=== PATIENT | male | born 1945 | race Caucasian/White ===

== ENCOUNTER 2018-09-26 07:51 | Day surgery (SDC) | payer OTHER ==
[2018-09-23 10:00] LABS: Absolute Lymphocytes (CBC) 2.2 K/uL (0.7-4.9); Absolute Monocytes 0.5 K/uL (0.1-1.3); Absolute Neutrophil 3.3 K/uL (1.8-8.0); Basophils % 1.1 % (0-1.3); Eosinophils % 6.6 % (0-4.4); Hematocrit 44.1 % (39.6-49.0); Lymphocytes % 34.5 % (15.3-44.8); MPV 7.9 fL (7.6-11.3); Monocytes % 7.5 % (3.3-12.3); RBC Red Blood Cell Count 4.62 M/uL (4.33-5.43)
[2018-09-23 10:45] LABS: Protime INR 1.04
--- NOTE | 2018-09-23 12:34 | RAD REPORT ---
EXAM DESCRIPTION: Anurag Purvis And Lat (2 Views)09/23/2018 12:25 pm CLINICAL HISTORY: Preop for coronary arterial catheterization COMPARISON: May 2017 FINDINGS: Small calcified granulomas present within the left lung base. A second 6 millimeter nodula r density lies inferior to this. Right lung appears clear. The heart is normal size IMPRESSION: 6 millimeter nodular overlying the left lung base may represent a pulmonary nodule or ni pple shadow. It is recommended that the patient have frontal and oblique views of the chest with a le ft nipple marker in 3 months for re-evaluation. Small left lung calcified granuloma
[2018-09-26] MEDS ORDERED: NA CHLORIDE 0.9% 500 ML ONE (08:08)
[2018-09-26] MEDS ORDERED: HEPARIN 5000 UNIT/ML 1 ML VIAL ONE (09:57)
[2018-09-26] MEDS ORDERED: ATROPINE SULF 1 MG/10 ML SYR IV ONE (09:58)
[2018-09-26] MEDS ORDERED: NICARDIPINE HCL 25 MG/10 ML IV ONE (09:58)
[2018-09-26] MEDS ORDERED: FENTANYL CITR 100 MCG/2 ML ONE (09:58)
[2018-09-26] MEDS ORDERED: MIDAZOLAM HCL 2 MG/2 ML INJ ONE ×2 (09:58→10:17)
[2018-09-26] MEDS ORDERED: NA CHLORIDE 0.9% 50 ML ONE (09:58)
[2018-09-26] MEDS ORDERED: PRASUGREL (EFFIENT) 10 MG TAB ONE (11:42)
[2018-09-26 15:27] LABS: Urine Appearance CLEAR; Urine Bilirubin NEGATIVE (NEG); Urine Blood NEGATIVE (NEG); Urine Color YELLOW; Urine Glucose NEGATIVE (NEG); Urine Protein NEGATIVE (NEG); Urine Specific Gravity >=1.030 (1.005-1.030); Urine Urobilinogen 0.2 mg/dL (0.2-1.0)
[2018-09-26 15:46] LABS: Urine Bacteria <20 /HPF (NONE SEEN); Urine Culture Reflex Order NOT NEEDED; Urine RBC <5 /HPF (NONE SEEN)
--- NOTE | 2018-09-26 19:23 | OP ---
Surgeon: Kirk Temple MD Procedure: Left heart catheterization, coronary left ventricular angiography, percutaneous coronary intervention of 3 separate friable thrombosed dissected lesions in the right coronary, proximal, mid and distal. There were 3 separate stents placed post-dilation and predilation. Findings: The patient's right coronary artery was diffusely diseased. There was evidence of thrombu s, dissection, a lot of friability, ectasias as well. The left main circumflex were free of any dise ase. Proximal and mid LAD were free of any significant disease. The distal LAD had a 50% smooth glen nosis, not felt to be likely causing ischemia. After stenting, there was no residual stenosis in the right coronary. Normal blood flow. Procedure In Detail: The patient gave informed consent. He had an abnormal Cardiolite stress test s howing anterior ischemia. Prepared and draped in usual sterile fashion, sedated with Versed and fent anyl. Right radial approach used. Radial artery was entered using a 21-gauge needle, cannulated wit h a 0.021 inch diameter guidewire, 6-Occitan Terumo sheath was done. We used lidocaine before this to anesthetize the area 1%. The sheath was flushed and we gave a radial cocktail consisting of nicardi pine, heparin, nitroglycerin. We were able to angiogram right and left coronary arteries. A left ve ntricle using a TIG catheter guided into the ascending aorta using fluoroscopy and a short radius J-t ip Glidewire. Once the decision was made to put a stent or 3 stents in the right coronary, we remove d the TIG catheter over an exchange length J-wire. We used a multipurpose 1 guide with side holes, i t was able to deep throat the right coronary, gave us excellent support. We crossed all the lesions with a [place] 0.014 inch wire. We pre-dilated the 4 different dilations up to 10 atmospheres with a 3.0 x 15 Emerge balloon. We were then able to place the most distal stent first, the mid stent the s econd in the proximal 1/3. After this, we post dilated with a 3.0 x 12 noncompliant emerge up to 16 atmospheres in 1 section of the mid RCA and when all done excellent angiographic result was noted. W dee removed the wire from the arteries, all balloons. The stents were in place. We took a final angio gram. We then removed the guidewire, flushed the sheath, removed the sheath and closed the arterioto my using a TR band. We used Angiomax, demonstrated our activated clotting time was over 400 seconds. JOHNY Voice ID: [id number] Report ID: [id number]
[2018-09-26] MEDS: ACETAMINOPHEN 500 MG TAB PO PRN (19:43)
[2018-09-26] MEDS ORDERED: ROSUVASTATIN 10 MG TAB PO SCH (21:00)
[2018-09-26] MEDS ORDERED: EZETIMIBE 10 MG TAB PO SCH (21:00)
[2018-09-26] MEDS ORDERED: ZOLPIDEM TARTRATE 5 MG TABLET PO ONE (22:02)
[2018-09-27 04:56] LABS: Hematocrit 41.4 % (39.6-49.0); MPV 8.1 fL (7.6-11.3); RBC Red Blood Cell Count 4.42 M/uL (4.33-5.43)
[2018-09-27 05:10] LABS: Potassium 3.7 mmol/L (3.5-5.1)
[2018-09-27] MEDS ORDERED: METOPROLOL XL 25 MG TAB PO SCH (06:00)
[2018-09-27] MEDS: ACETAMINOPHEN 500 MG TAB PO PRN (08:23)
[2018-09-27] MEDS ORDERED: LOSARTAN POTASSIUM 50 MG TABLET PO SCH (09:00)
[2018-09-27] MEDS ORDERED: CLOPIDOGREL 75 MG TABLET PO SCH (09:00)
[2018-09-27] MEDS ORDERED: ASPIRIN EC 81 MG TAB PO SCH (09:00)
== END 2018-09-27 09:50 | disposition home or self-care (01) ==
LOC: CCL 07:51 → 4TH 11:30 → CCL 09-27 09:50
PROVIDERS: ATTEND Internal Medicine
DX: I25.118 Atherosclerotic heart disease of native coronary artery with other forms of angina pectoris (principal); I10 Essential (primary) hypertension; E78.2 Mixed hyperlipidemia
CPT/HCPCS: 85025; 81001; 80048 ×2; 36415 ×2; 85610; 85347; 85730; 85027; 71046; 92928; 93458; C1893; C1725; J1644; J2250; J3010; J0583

== ENCOUNTER 2021-06-11 19:50 | Observation (INO) | payer OTHER ==
[2021-06-11 20:49] LABS: Absolute Lymphocytes (CBC) 1.9 K/uL (0.7-4.9); Hematocrit 41.4 % (39.6-49.0); Lymphocytes % 17.3 % (15.3-44.8); MPV 7.5 fL (7.6-11.3); RBC Red Blood Cell Count 4.39 M/uL (4.33-5.43)
[2021-06-11 20:52] LABS: Protime INR 0.97
--- NOTE | 2021-06-11 21:42 | RAD REPORT ---
EXAM DESCRIPTION: CT - Head Brain Wo Cont - 06/11/2021 9:24 pm CLINICAL HISTORY: Confused;Headache Headache, drowsiness COMPARISON: Head angio dated 06/11/2021 TECHNIQUE: All CT scans are performed using dose optimization technique as appropriate and may inclu de automated exposure control or mA/KV adjustment according to patient size. FINDINGS: No intracranial hemorrhage, hydrocephalus or extra-axial fluid collection.Mild generalized brain atrophy.No areas of brain edema or evidence of midline shift. Mild fluid is present in the right maxillary sinus. The calvarium is intact. IMPRESSION: No acute intracranial abnormality. Mild fluid in the right maxillary antrum.
[2021-06-11 21:44] LABS: Potassium 3.9 mmol/L (3.5-5.1); Troponin High Sensitivity 7.8 pg/mL (<58.9)
--- NOTE | 2021-06-11 21:44 | RAD REPORT ---
EXAM DESCRIPTION: CT - Head angio - 06/11/2021 9:24 pm CLINICAL HISTORY: Confused;Headache Headache, drowsiness COMPARISON: No comparisons TECHNIQUE: CT angiography of the head was performed with MIPs. All CT scans are performed using dose optimization technique as appropriate and may include automated exposure control or mA/KV adjustment according to patient size. FINDINGS: No evidence of aneurysm is detected. No flow-limiting stenosis or vascular malformation id entified. Antegrade flow is seen in the vertebral arteries. The left vertebral artery is mildly dominant. The visualized dural venous sinuses are patent. IMPRESSION: No significant flow abnormality is detected.
[2021-06-11] MEDS ORDERED: MORPHINE 4 MG/ML SYR ONE (21:45)
[2021-06-11] MEDS ORDERED: NA CHLORIDE 0.9% 500 ML ONE (21:46)
[2021-06-11] MEDS ORDERED: ONDANSETRON 4 MG/2 ML VIAL ONE (21:46)
[2021-06-11 23:37] LABS: Urine Blood Trace-intact (Negative); Urine Glucose Negative (Negative); Urine Protein Negative (Negative); Urine Specific Gravity 1.015 (1.005-1.030); Urine pH 7.5 (5.0-7.0)
--- NOTE | 2021-06-11 23:49 | ER ---
Nurse's Notes [facility] Name: Amy Salcedo Jr Age: 76 yrs Sex: Male : 1945 Arrival Date: 06/11/2021 Time: 19:53 Bed 4 Private MD: Diagnosis: Headache;Confusion Presentation: 06/11 19:53 Chief complaint: Patient states: "My head is just killing me" Dr. Hidalgo at bedside at as6 time of triage. Coronavirus screen: At this time, the client does not indicate any symptoms associated with coronavirus-19. Ebola Screen: No symptoms or risks identified at this time. Initial Sepsis Screen: Does the patient meet any 2 criteria? No. Patient's initial sepsis screen is negative. Does the patient have a suspected source of infection? No. Patient's initial sepsis screen is negative. Risk Assessment: Do you want to hurt yourself or someone else? Patient reports no desire to harm self or others. Onset of symptoms was June 11, 2021 at 12:00. 19:53 Method Of Arrival: Wheelchair as6 19:53 Acuity: HIEN 3 as6 Historical: - Allergies: 19:59 No Known Allergies; as6 - Home Meds: 19:59 ezetimibe 10 mg oral tab 1 tab once daily [Active]; losartan 50 mg oral tab 1 tab once as6 daily [Active]; metoprolol tartrate 25 mg Oral tab 1 tab once daily [Active]; rosuvastatin 10 mg oral cpSP 1 cap once daily [Active]; - PMHx: 19:59 Hypertensive disorder; Hypercholesterolemia; as6 - PSHx: 19:59 stent; as6 - Immunization history:: Client reports receiving the 2nd dose of the Covid vaccine, moderna. - Social history:: Smoking status: Patient denies any tobacco usage or history of. - Family history:: not pertinent. - Hospitalizations: : No recent hospitalization is reported. Screenin:03 Abuse screen: Denies threats or abuse. Denies injuries from another. Nutritional as6 screening: No deficits noted. Tuberculosis screening: No symptoms or risk factors identified. Fall Risk None identified. Assessment: 20:04 General: Appears in no apparent distress. Behavior is calm, cooperative. Pain: as6 Complains of pain in headache. Neuro: Level of Consciousness is awake, alert, obeys commands, Oriented to person, place, time, situation, Reports headache occipital area, since 1200 today. Vital Signs: 19:53 BP 137 / 71; Pulse 71; Resp 13 S; Temp 98.0(O); Pulse Ox 99% on R/A; Weight 77.11 kg as6 (R); Height 5 ft. 6 in. (167.64 cm) (R); Pain 9/10; 20:48 BP 133 / 80; Pulse 65; Resp 15 S; Pulse Ox 94% on R/A; as6 21:48 BP 125 / 73; Pulse 71; Resp 11 S; Pulse Ox 100% on R/A; as6 22:00 BP 127 / 74; Pulse 72; Resp 16; Pulse Ox 99% on R/A; st1 06/12 01:43 BP 112 / 67; Pulse 65; Resp 16; Pulse Ox 97% on 2 lpm NC; st1 06/11 19:53 Body Mass Index 27.44 (77.11 kg, 167.64 cm) as6 Norman Coma Score: 06/11 23:46 Eye Response: spontaneous(4). Verbal Response: oriented(5). Motor Response: obeys rn commands(6). Total: 15. ED Course: 19:53 Patient arrived in ED. as6 19:55 Albert Hidalgo MD is Attending Physician. rn 19:59 Triage completed. as6 20:02 Inserted saline lock: 20 gauge in right antecubital area, using aseptic technique. st1 20:02 Arm band placed on. EKG completed in triage. Results shown to MD. as6 20:03 Placed in gown. Bed in low position. Call light in reach. Side rails up X2. Adult w/ as6 patient. traffic monitor specialist on. Pulse ox on. NIBP on. Warm blanket given. 20:05 Gaurav Stewart, TUSHAR is Primary Nurse. as6 20:05 CBC with Diff Sent. st1 20:05 Basic Metabolic Panel Sent. st1 20:05 Ptt, Activated Sent. st1 20:05 Protime (+inr) Sent. st1 20:05 Troponin High Sensitivity Sent. st1 21:23 CT Head Brain wo Cont In Process Unspecified. EDMS 21:24 CT Head Angio In Process Unspecified. EDMS 23:38 SARS-COV-2 RT PCR (Document "Date of Onset" if Symptomatic) Sent. as6 23:48 Collin Diaz is Hospitalizing Provider. rn 06/12 01:52 No provider procedures requiring assistance completed. st1 01:55 Patient admitted, IV remains in place. st1 Administered Medications: 06/11 21:47 Drug: Zofran (Ondansetron) 4 mg Route: IVP; Site: right antecubital; as6 21:47 Drug: NS 0.9% 500 ml Route: IV; Rate: bolus; Site: right antecubital; as6 21:48 Drug: morphine 4 mg Route: IVP; Site: right antecubital; as6 Outcome: 23:49 Decision to Hospitalize by Provider. rn 06/12 01:54 Admitted to Med/surg accompanied by tech, family with patient, via stretcher, with st1 chart, Report called to TUSHAR Galindo Condition: stable Instructed on the need for admit. 02:10 Patient left the ED. st1 Signatures: Dispatcher [employer] EDMS Albert Hidalgo MD MD rn Slawson, Ashby, RN RN as6 Erica Talbert RN RN st1
--- NOTE | 2021-06-11 23:49 | EDPHYS ---
Physician Documentation [facility] Name: Amy Salcedo Jr Age: 76 yrs Sex: Male : 1945 Arrival Date: 06/11/2021 Time: 19:53 Bed 4 Private MD: ED Physician Albert Hidalgo HPI: 06/11 21:17 This 76 yrs old Male presents to ER via Wheelchair with complaints of headache. rn 21:17 The patient complains of pain to the top of head. The patient describes the headache as rn aching. Onset: The symptoms/episode began/occurred at 12:00. Associated signs and symptoms: Pertinent negatives: altered mental status, dizziness, fever, neck stiffness, rash, vision changes, vision loss, vomiting, weakness, vertigo. Severity of symptoms: At its worst the pain was moderate, in the emergency department the pain is unchanged. Headache History: Denies prior headaches. The symptoms are alleviated by nothing. the symptoms are aggravated by nothing. The patient has not experienced similar symptoms in the past. The patient has not recently seen a physician. Pt reports headache around noon today, had just finished working out in gym, no trauma or head injury. No fever. No neck pain. No focal neuro deficit. No vision changes. No chest pain or sob. No abd pain. Reports pain to top of head. . Historical: - Allergies: 19:59 No Known Allergies; as6 - Home Meds: 19:59 ezetimibe 10 mg oral tab 1 tab once daily [Active]; losartan 50 mg oral tab 1 tab once as6 daily [Active]; metoprolol tartrate 25 mg Oral tab 1 tab once daily [Active]; rosuvastatin 10 mg oral cpSP 1 cap once daily [Active]; - PMHx: 19:59 Hypertensive disorder; Hypercholesterolemia; as6 - PSHx: 19:59 stent; as6 - Immunization history:: Client reports receiving the 2nd dose of the Covid vaccine, moderna. - Social history:: Smoking status: Patient denies any tobacco usage or history of. - Family history:: not pertinent. - Hospitalizations: : No recent hospitalization is reported. ROS: 21:17 Constitutional: Negative for fever, chills, and weight loss, Eyes: Negative for injury, rn pain, redness, and discharge, ENT: Negative for injury, pain, and discharge, Neck: Negative for injury, pain, and swelling, Cardiovascular: Negative for chest pain, palpitations, and edema, Respiratory: Negative for shortness of breath, cough, wheezing, and pleuritic chest pain, Abdomen/GI: Negative for abdominal pain, nausea, vomiting, diarrhea, and constipation, Back: Negative for injury and pain, : Negative for injury, bleeding, discharge, and swelling, MS/Extremity: Negative for injury and deformity, Skin: Negative for injury, rash, and discoloration, Neuro: Negative for weakness, numbness, tingling, and seizure. Exam: 21:17 Constitutional: This is a well developed, well nourished patient who is awake, alert, rn and in no acute distress. Ambulatory without assistance. Head/Face: Normocephalic, atraumatic. Eyes: Pupils equal round and reactive to light, extra-ocular motions intact. Neck: Trachea midline, no masses palpated, and no cervical lymphadenopathy. Supple, full range of motion without nuchal rigidity, or vertebral point tenderness. No Meningismus. Cardiovascular: Regular rate and rhythm. No pulse deficits. Respiratory: No increased work of breathing, no retractions or nasal flaring. Abdomen/GI: Soft, non-tender, no masses Skin: Warm, dry with normal turgor. Normal color with no rashes, no lesions, and no evidence of cellulitis. MS/ Extremity: Pulses equal, no cyanosis. Neurovascular intact. Full, normal range of motion. Equal circumference. Neuro: Awake and alert, GCS 15, oriented to person, place, time, and situation. Cranial nerves II-XII grossly intact. Motor strength 5/5 in all extremities. Sensory grossly intact. Cerebellar exam normal. Normal gait. Vital Signs: 19:53 BP 137 / 71; Pulse 71; Resp 13 S; Temp 98.0(O); Pulse Ox 99% on R/A; Weight 77.11 kg as6 (R); Height 5 ft. 6 in. (167.64 cm) (R); Pain 9/10; 20:48 BP 133 / 80; Pulse 65; Resp 15 S; Pulse Ox 94% on R/A; as6 21:48 BP 125 / 73; Pulse 71; Resp 11 S; Pulse Ox 100% on R/A; as6 22:00 BP 127 / 74; Pulse 72; Resp 16; Pulse Ox 99% on R/A; st1 06/12 01:43 BP 112 / 67; Pulse 65; Resp 16; Pulse Ox 97% on 2 lpm NC; st1 06/11 19:53 Body Mass Index 27.44 (77.11 kg, 167.64 cm) as6 Norman Coma Score: 06/11 23:46 Eye Response: spontaneous(4). Verbal Response: oriented(5). Motor Response: obeys rn commands(6). Total: 15. MDM: 19:55 Patient medically screened. rn 23:25 ED course: Pt feeling better, no acute findings yet, waiting on urine, states pain down rn to 210. CT head and neck without and angio neg. . 23:46 Differential diagnosis: cerebral vascular accident, hypertensive headache, rn intracerebral hemorrhage, migraine, neoplasm, subarachnoid bleed, subdural hematoma, tension headache, vasomotor headache. Data reviewed: vital signs, nurses notes, lab test result(s), EKG, radiologic studies, CT scan, and as a result, I will admit patient. Counseling: I had a detailed discussion with the patient and/or guardian regarding: the historical points, exam findings, and any diagnostic results supporting the discharge/admit diagnosis, lab results, radiology results, the need for further work-up and treatment in the hospital. Response to treatment: the patient's symptoms have mildly improved after treatment, and as a result, I will admit patient. Admission orders: after a detailed discussion of the patient's condition and case, the admit orders are written by me. ED course: Pt still answering slightly inappropriately, when asked to pee states "not sleepy", and when asked pain level answers "76" (his age). states that seems better but is concerned about his confusion, which seemed even worse to her prior to arrival. No acute findings on CT head/angio.. 06/11 19:56 Order name: CBC with Diff; Complete Time: 21:17 rn 06/11 19:56 Order name: Basic Metabolic Panel; Complete Time: 21:46 rn 06/11 19:56 Order name: Protime (+inr); Complete Time: 21:17 rn 06/11 19:56 Order name: Ptt, Activated; Complete Time: 21:17 rn 06/11 19:56 Order name: Urine Microscopic Only; Complete Time: 00:36 rn 06/11 19:56 Order name: Troponin High Sensitivity; Complete Time: 21:46 rn 06/11 19:56 Order name: CT Head Brain wo Cont; Complete Time: 21:46 rn 06/11 19:56 Order name: CT Head Angio; Complete Time: 21:46 rn 06/11 23:24 Order name: SARS-COV-2 RT PCR (Document "Date of Onset" if Symptomatic); Complete Time: rn 00:36 06/11 23:30 Order name: CREATININE WHOLE BLOOD; Complete Time: 23:39 EDMS 06/11 23:37 Order name: Urine Dipstick-Ancillary; Complete Time: 23:39 EDMS 06/11 19:56 Order name: IV Start; Complete Time: 20:02 rn 06/11 19:56 Order name: Urine Dipstick-Ancillary (obtain specimen); Complete Time: 23:39 rn 06/11 19:56 Order name: Cardiac monitoring; Complete Time: 20:05 rn 06/11 19:56 Order name: O2 Sat Monitoring; Complete Time: 20:05 rn 06/11 19:56 Order name: EKG; Complete Time: 19:57 rn 06/11 19:56 Order name: EKG - Nurse/Tech; Complete Time: 20:05 rn Administered Medications: 21:47 Drug: Zofran (Ondansetron) 4 mg Route: IVP; Site: right antecubital; as6 21:47 Drug: NS 0.9% 500 ml Route: IV; Rate: bolus; Site: right antecubital; as6 21:48 Drug: morphine 4 mg Route: IVP; Site: right antecubital; as6 Disposition Summary: 06/11/21 23:49 Hospitalization Ordered Hospitalization Status: Observation rn Provider: Collin Diaz rn Location: Telemetry/MedSurg (observation) rn Condition: Stable rn Problem: new rn Symptoms: have improved rn Bed/Room Type: Standard rn Room Assignment: 223(06/12/21 01:13) cg Diagnosis - Headache rn - Confusion rn Forms: - Medication Reconciliation Form rn - SBAR form rn Signatures: Dispatcher [employer] EDAlbert Cobian MD MD rn Garcia, Cindy, RN RN Gaurav Wilks RN RN as6 Corrections: (The following items were deleted from the chart) 06/12 00:13 06/11 23:49 rn cg
[2021-06-12 00:25] LABS: Urine Bacteria <20 /HPF (NONE SEEN); Urine RBC <5 /HPF (NONE SEEN)
--- NOTE | 2021-06-12 01:26 | P.HP ---
Certification for Inpatient Patient admitted to: Observation With expected LOS: <2 Midnights Patient will require the following post-hospital care: None Practitioner: I am a practitioner with admitting privileges, knowledge of patient current condition, hospital course, and medical plan of care. Services: Services provided to patient in accordance with Admission requirements found in Title 42 Section 412.3 of the Code of Federal Regulations Patient History Date of Service: 06/12/21 Primary Care Provider: Unknown Reason for admission: Stroke rule out History of Present Illness: Patient is a 76-year-old male who presented to the ED today with his after experiencing a severe headache and states he was experiencing some confusion. reports when she would speak to him he would not respond appropriately although patient denies confusion. Upon work-up in the ER, head CT was negative, WBC 11, sodium 132, troponin HS 7.8. Patient has no history of stroke or TIA, however did receive 3 stents 3 years ago. It appears that he was on clopidogrel for some time but was taken off of it. Patient sees Dr. Valenzuela. Patient will be admitted for observation for stroke rule out with MRI, echo, and carotid ultrasound in the morning with Dr. Bautista consulting. Allergies No Known Allergies Allergy (Unverified 09/23/18 09:26) Home medications list reviewed: Yes Home Medications: Aspirin 81 mg PO DAILY 09/26/18 Clopidogrel Bisulfate [Plavix*] 75 mg PO DAILY #30 tablet 09/27/18 Ezetimibe [Zetia*] 10 mg PO BEDTIME tab 09/27/18 Losartan Potassium [Cozaar*] 50 mg PO DAILY tablet 09/27/18 Metoprolol Succinate [Toprol Xl*] 25 mg PO [id number] tab 09/27/18 Rosuvastatin [Crestor*] 40 mg PO BEDTIME #30 tab 09/27/18 - Past Medical/Surgical History Diabetic: No -: HTN -: Hyperlipidemia -: knee replacement right -: hernia repair -: 3 stents Psychosocial/ Personal History: Patient lives at home with his . - Family History Father -: Lung disease Mother -: Diabetes - Social History Smoking Status: Never smoker Alcohol use: No CD- Drugs: No Caffeine use: No Place of Residence: Home Review of Systems 10-point ROS is otherwise unremarkable General: Other (headache) Physical Examination - Physical Exam General: Alert, In no apparent distress, Oriented x3 HEENT: Atraumatic, PERRLA, Mucous membr. moist/pink, EOMI, Sclerae nonicteric Neck: Supple, 2+ carotid pulse no bruit, No LAD, Without JVD or thyroid abnormality Respiratory: Clear to auscultation bilaterally, Normal air movement Cardiovascular: Regular rate/rhythm, Normal S1 S2 Gastrointestinal: Normal bowel sounds, No tenderness Musculoskeletal: No tenderness Integumentary: No rashes Neurological: Normal gait, Normal speech, Normal strength at 5/5 x4 extr, Normal tone, Normal affect - Studies Laboratory Data (last 24 hrs) 06/11/21 20:00: PT 11.2, INR 0.97, APTT 29.7 06/11/21 20:00: Sodium 132 L, Potassium 3.9, BUN 15, Creatinine 1.28, Glucose 143 H 06/11/21 20:00: WBC 11.00 H, Hgb 14.2, Hct 41.4, Plt Count 201 Assessment and Plan - Problems (Diagnosis) (1) TIA (transient ischemic attack) Current Visit: Yes Status: Acute (2) HTN (hypertension) Current Visit: Yes Status: Chronic Qualifiers: Hypertension type: primary hypertension Qualified Code(s): I10 - Essential (primary) hypertension (3) HLD (hyperlipidemia) Current Visit: Yes Status: Chronic Qualifiers: Hyperlipidemia type: unspecified Qualified Code(s): E78.5 - Hyperlipidemia, unspecified (4) Stented coronary artery Current Visit: No Status: Chronic - Plan -Patient denies any confusion at this time. he is AxO x3 and has no neuro deficits. Patient reports his headache has improved. -Patient's confusion and headache today likely TIA with CT head negative -MRI, echo, carotid ultrasound ordered for tomorrow -Atorvastatin, folic acid, aspirin ordered -Dr. Bautista consulting DVT PPx: lovenox Code: Full Discharge Plan: Home Plan to discharge in: 24 Hours - Advance Directives Does patient have a Living Will: No Does patient have a Durable POA for Healthcare: No - Code Status/Comfort Care Code Status Assessed: Yes (Full) Critical Care: No Time Spent Managing Pts Care (In Minutes): 70
[2021-06-12] MEDS ORDERED: ONDANSETRON 4 MG/2 ML VIAL IV PRN (02:32)
[2021-06-12 03:05] VITALS: BMI 25.8
[2021-06-12 03:24] LABS: Absolute Lymphocytes (CBC) 2.2 K/uL (0.7-4.9); Hematocrit 38.6 % (39.6-49.0); Lymphocytes % 21.3 % (15.3-44.8); MPV 7.1 fL (7.6-11.3); RBC Red Blood Cell Count 4.12 M/uL (4.33-5.43)
[2021-06-12 03:46] LABS: Albumin 3.5 g/dL (3.4-5.0); Potassium 4.1 mmol/L (3.5-5.1); Protein, Total 6.4 g/dL (6.4-8.2); Thyroid Stimulating Hormone 1.4 uIU/mL (0.360-3.740)
[2021-06-12 04:17] VITALS: O2SAT 97
--- NOTE | 2021-06-12 07:53 | RAD REPORT ---
EXAM DESCRIPTION: - CP - 06/12/2021 3:50 am CLINICAL HISTORY: stroke r/o COMPARISON: No comparisons TECHNIQUE: Real-time sonographic evaluation of bilateral carotid and vertebral systems was performed . Tam scale and Doppler interrogation were performed with waveform tracing bilaterally. FINDINGS: Normal high resistance waveforms are noted in both external carotid arteries. The common c arotid arteries and internal carotid arteries show normal low resistance waveforms. Mild calcified and noncalcified plaquing changes are present at each carotid bulb. Visually there is no significant luminal narrowing. No dissection seen. Peak systolic and end diastolic velocity values and the ICA/CCA ratios are in the non-hemodynamically significant range. Antegrade flow seen in both vertebral arteries. Velocity values and ratios were recorded and are retained in the patient's imaging records. IMPRESSION: Mild calcified and noncalcified plaquing changes not causing significant luminal narrowi ng. No evidence of a hemodynamically significant stenosis.
[2021-06-12] MEDS ORDERED: FOLIC ACID 1 MG TABLET PO SCH (09:00)
[2021-06-12] MEDS ORDERED: ASPIRIN EC 81 MG TAB PO SCH (09:00)
[2021-06-12] MEDS ORDERED: ENOXAPARIN 40 MG/0.4 ML SQ SCH (09:00)
--- NOTE | 2021-06-12 12:27 | RAD REPORT ---
EXAM DESCRIPTION: MRI - Brain W/Wo Cont - 06/12/2021 12:04 pm CLINICAL HISTORY: confusion/headache COMPARISON: MRA Head Wo Cont dated 06/12/2021; MRA Neck W/Wo Cont dated 06/12/2021; Head Brain Wo Cont dated 06/11/2021 TECHNIQUE: Sagittal and axial T1-weighted images were obtained. Axial PD/heavily T2-weighted and T2- FLAIR images were obtained along with axial DWI/ADC mapping sequences. Coronal heavily T2 weighted s equence obtained. Axial and coronal post-contrast T1-weighted images were also obtained. A 17 ml Mul tihance contrast following utilized. FINDINGS: No intracranial hemorrhage, mass or acute infarction. There is no edema or shift of midli ne structures. No extra-axial fluid collections. Tam-matter/white matter junction is preserved. Sig nal voids are seen as a normal finding in the major intracranial vessels. Atrophy changes are present moderate in severity with ventricles in proportion volume loss. Numerous T2/IR white matter signal a bnormalities are present throughout the cerebral white matter sparing the basal ganglia, thalamus and brainstem tissues. These do not enhance. Post-contrast images show no abnormal enhancement of the brain parenchyma or dura. Mastoid air cells are clear. No acute paranasal sinus finding. IMPRESSION: Moderate atrophy and moderate chronic ischemic change in cerebral hemispheres. No acute intracranial finding.
--- NOTE | 2021-06-12 12:29 | RAD REPORT ---
EXAM DESCRIPTION: MRI - MRA Head Wo Cont - 06/12/2021 12:04 pm CLINICAL HISTORY: Dizziness, weakness, confusion and headache COMPARISON: MRI brain same date TECHNIQUE: Axial and coronal 3D [id number] image acquisition was performed. 3D rotational images were generated with source and reconstruction images reviewed. Horizontal and vertical axis rotation al views generated using MIP protocol. FINDINGS: No aneurysm or vascular malformation. No vasculitis or other diffuse vascular process iden tifiable. Prominent tortuosity of the vertebrobasilar vasculature noted with no other significant finding. Bila teral internal carotid arteries are unremarkable as well. The anterior, middle and posterior cerebral artery distribution show no significant findings. Anterior communicating artery is present. IMPRESSION: MRA head examination shows no significant or suspicious finding.
--- NOTE | 2021-06-12 12:30 | RAD REPORT ---
EXAM DESCRIPTION: MRI - MRA Neck W/Wo Cont - 06/12/2021 12:04 pm CLINICAL HISTORY: Headache, confusion COMPARISON: MRI brain same date, MRA head same date TECHNIQUE: MR angiography of the cervical vasculature performed. Coronal imaging plane acquisition u tilized. A 17 MultiHance contrast volume was utilized. Coronal reformatted images were generated and reviewed. Vertical axis 3D rotational projections obtained using maximum intensity projection protoco l. FINDINGS: Aortic arch is 3 vessel configuration. There is tortuosity of the great vessel origins. No stenoses are seen. No stenosis at the origin of either vertebral artery. Bilateral common carotid an d internal carotid arteries show no significant atherosclerotic change or significant luminal narrowi ng. No dissection changes. Left vertebral artery is slightly dominant. No vertebral or basilar focal abnormality seen. IMPRESSION: MRA neck examination shows no significant or suspicious finding.
--- NOTE | 2021-06-12 14:44 | P.DS ---
Admission Date: 06/12/21 Discharge Date: 06/12/21 Primary Care Provider: Unknown Disposition: ROUTINE DISCHARGE Discharge Condition: FAIR Reason for Admission: Stroke rule out - Problems (1) Headache Current Visit: Yes Status: Acute (2) Transient alteration of awareness Current Visit: Yes Status: Acute (3) HLD (hyperlipidemia) Current Visit: Yes Status: Chronic Qualifiers: Hyperlipidemia type: unspecified Qualified Code(s): E78.5 - Hyperlipidemia, unspecified (4) HTN (hypertension) Current Visit: Yes Status: Chronic Qualifiers: Hypertension type: primary hypertension Qualified Code(s): I10 - Essential (primary) hypertension (5) CAD (coronary artery disease) Current Visit: No Status: Acute Brief History of Present Illness: Patient is a 76-year-old male who presented to the ED today with his after experiencing a severe headache and states he was experiencing some confusion. reports when she would speak to him but he would not respond appropriately although patient denied confusion. Upon work-up in the ER, head CT was negative, WBC 11, sodium 132, troponin HS 7.8. Patient has no history of stroke or TIA, however did receive 3 stents 3 years ago. It appears that he was on clopidogrel for some time but was taken off of it. Patient sees Dr. Valenzuela. Patient admitted under observation for stroke rule out. Hospital Course: Patient placed on observation on the medical floor. Patient was asymptomatic during the hospital stay. MRI of the brain did not show any acute CVA, carotid Doppler unremarkable with no significant vessel stenosis, echocardiogram done and the result is pending. Patient had no problem with swallowing or speech or vision or gait. Her symptoms could be related to migraine headache. Acute stroke ruled out. Patient is discharged to continue his home medications. Vital Signs/Physical Exam: Temp Pulse Resp BP Pulse Ox 97.3 F 63 20 110/60 96 06/12/21 12:00 06/12/21 12:00 06/12/21 12:00 06/12/21 12:06/12/21 12:00 General: Alert, In no apparent distress, Oriented x3 HEENT: Mucous membr. moist/pink Neck: Supple, JVD not distended Respiratory: Clear to auscultation bilaterally, Normal air movement Cardiovascular: Regular rate/rhythm, Normal S1 S2 Gastrointestinal: Soft and benign, Non-distended, No tenderness Musculoskeletal: No swelling, No tenderness Integumentary: No rashes Neurological: Normal speech, Normal strength at 5/5 x4 extr, Cranial nerves 3-12 intact Laboratory Data at Discharge: WBC 10.20 K/uL (4.3-10.9) 06/12/21 02:48 Hgb 13.2 g/dL (13.6-17.9) L 06/12/21 02:48 Hct 38.6 % (39.6-49.0) L 06/12/21 02:48 Plt Count 186 K/uL (152-406) 06/12/21 02:48 PT 11.2 SECONDS (9.5-12.5) 06/11/21 20:00 INR 0.97 06/11/21 20:00 APTT 29.7 SECONDS (24.3-36.9) 06/11/21 20:00 Sodium 132 mmol/L (136-145) L 06/12/21 02:48 Potassium 4.1 mmol/L (3.5-5.1) 06/12/21 02:48 BUN 16 mg/dL (7-18) 06/12/21 02:48 Creatinine 1.16 mg/dL (0.55-1.3) 06/12/21 02:48 Glucose 118 mg/dL (74-106) H 06/12/21 02:48 Total Bilirubin 1.0 mg/dL (0.2-1.0) 06/12/21 02:48 AST 27 U/L (15-37) 06/12/21 02:48 ALT 36 U/L (12-78) 06/12/21 02:48 Alkaline Phosphatase 61 U/L (45-117) 06/12/21 02:48 Triglycerides 59 mg/dL (<150) 06/12/21 02:48 Cholesterol 96 mg/dL (<200) 06/12/21 02:48 HDL Cholesterol 48 mg/dL (40-60) 06/12/21 02:48 Cholesterol/HDL Ratio 2.00 06/12/21 02:48 Home Medications: Losartan Potassium [Cozaar*] 50 mg PO DAILY tablet 09/27/18 Diphenhydramine HCl [Benadryl Allergy] 50 mg PO BEDTIME PRN PRN 06/12/21 Ezetimibe [Zetia*] 10 mg PO DAILY 06/12/21 Metoprolol Succinate [Toprol Xl*] 25 mg PO DAILY 06/12/21 Multivitamin 1 each PO DAILY 06/12/21 [place]-3/Dha/Epa/Fish Oil [Fish Oil 1,000 mg Softgel] 1 cap PO DAILY 06/12/21 Rosuvastatin [Crestor*] 10 mg PO BEDTIME 06/12/21 Diet: AHA Activity: Ad samir Followup: Los Harris MD [Primary Care Provider] - 1-2 Weeks
[2021-06-12 16:40] VITALS: BP 118/63; TEMP 97.2
[2021-06-12] MEDS ORDERED: ATORVASTATIN 40 MG TAB PO SCH (21:00)
--- NOTE | 2021-06-12 22:50 | CON ---
Reason For Consultation: Consultation called because of possible stroke. History Of Present Illness: Ms. Salcedo is a 76-year-old patient with hypertension and dyslipidemia w ho developed around 12 noon yesterday severe headache and confusion. She took two Tylenol twice and went to bed each time and woke up with a headache. By 6 p.m. headache was not better and she took Ad tigre. By 6:30, she and her decided to come to [facility]. She still had confusion, difficulty getting her thoughts together and getting words out. At [facility] her head CT s can, which was done at 9:24 p.m. and note that her symptom onset was [address] out of the window for any tPA, the scan was negative. She was given IV fluids, pain medication, and her blood work showed essentially unremarkable complete blood count with differential. Coagulation panel was u nremarkable. Chemistries show slightly low sodium and glucose was 143. Liver function studies son l. Cholesterol panel unremarkable with total cholesterol 96, LDL cholesterol 36, HDL cholesterol 48. TSH 1.04, free T4 1.01. Urinalysis showed trace of blood, trace ketones, pH 7.5, and otherwise unr emarkable. COVID-19 test was negative. The patient said her confusion resolved first around 9 p.m. and headache resolved about an hour later. Earlier today, MRI of her brain showed no acute ischemic or hemorrhagic stroke. The study was remark able for kefy-jz-vvyscjag right small vessel ischemic disease. MRA of the head showed no significant abnormalities. A neck MRA showed no suspicious findings. Carotid artery ultrasound showed no evide nce of hemodynamically significant stenosis. There was mild calcification and noncalcified plaquing. Past Medical History: As noted. Past Surgical History: Knee replacement, hernia repair and she has had 3 cardiac stents. Allergies: NO KNOWN DRUG ALLERGIES. Medications: At home are aspirin 81 mg daily, Plavix 75 mg daily, Zetia 10 mg at bedtime, Cozaar 50 mg daily, Toprol-XL 25 mg daily, and rosuvastatin 40 mg at bedtime. Family History: Diabetes in mother and lung disease in father. Social History: No alcohol, tobacco, or IV drug use. Review of Systems: She denies any recent fevers, chills, nausea, vomiting, myalgias, arthralgias, headache, weight tanner e, rash, or psychiatric issues. Physical Examination: Vital Signs: Blood pressure 118/63, pulse 61, respiratory rate 20, temperature 97.2, oxygen saturati on 96% on room air. Weight 165 pounds, height 5 feet 7 inches, BMI 25.8. General: Ms. Salcedo is resting in bed. She is in no significant distress. is at the bedstx e. HEENT: She is normocephalic, atraumatic. Sclerae anicteric. Oropharynx is pink and moist. Neck: Supple. Chest: Clear. Heart: Regular. Extremities: No clubbing, cyanosis, or edema. Neurologic: She is alert and oriented to person, place, situation. She has no expressive or recepti ve aphasias. Cranial nerves 2-12 are intact by exam. Motor examination 5/5 proximally and distally in upper and lower extremities. Coordination intact in the upper and lower extremities. She has goo d stance and stride and arm swing. Assessment: Ms. Salcedo is a 76-year-old patient with possible transient ischemic attack lasting abou t 8-9 hours. She has no focal neurological deficits. MRI of the brain unremarkable. Carotid Dopple r and MRA of head and neck are unremarkable. She is on aspirin and Plavix along with antihypertensiv e medications. Her blood pressure is controlled. Her cholesterol is in good state. Plan: 1.Continue aspirin, Plavix, and statin medication. 2.Continue aggressive management of hypertension. 3.Eight glasses of water daily. 4.Thirty minutes of brisk aerobic exercise daily. 5.Folic acid 1 mg daily. 6.The patient is advised on modifying her diet to reduce her stroke risk further. 7.After discharge today, she should follow up with Dr. Bautista in clinic 1 month later. ALESSANDRA/NAUN Voice ID: [id number] Report ID: [id number]
--- NOTE | 2021-06-13 07:09 | ECHO ---
HEIGHT: 5 ft 7 in WEIGHT: 165 lb 0 oz DATE OF STUDY: 06/12/[address]: Maureen Cancino 2-DIMENSIONAL: YES M.MODE: YES DOPPLER: YES COLOR FLOW: YES TDS: YES PORTABLE: NO DEFINITY: NO BUBBLE STUDY: NO DIAGNOSIS: STROKE CARDIAC HISTORY: CATHERIZATION: YES SURGERY: NO PROSTHETIC VALVE: NO PACEMAKER: NO MEASUREMENTS (cm) DIASTOLIC (NORMALS) SYSTOLIC (NORMALS) IVSd 1.1 (0.6-1.2) LA Diam 2.4 (1.9-4.0) LVEF 52% LVIDd 2.8 (3.5-5.7) LVIDs 2.1 (2.0-3.5) %FS 25% LVPWd 1.2 (0.6-1.2) Ao Diam 2.9 (2.0-3.7) 2 DIMENSIONAL ASSESSMENT: RIGHT ATRIUM: NORMAL LEFT ATRIUM: NORMAL RIGHT VENTRICLE: NORMAL LEFT VENTRICLE: NORMAL TRICUSPID VALVE: NORMAL MITRAL VALVE: NORMAL PULMONIC VALVE: NORMAL AORTIC VALVE: NORMAL PERICARDIAL EFFUSION: NONE AORTIC ROOT: NORMAL LEFT VENTRICULAR WALL MOTION: UNABLE TO EVALUATE DOPPLER/COLOR FLOW: SEE BELOW COMMENTS: VERY LIMITED WINDOWS. OVERALL LEFT VENTRICULAR APPEARS NORMAL. TECHNOLOGIST: Patria MTZ
== END 2021-06-12 17:29 | disposition home or self-care (01) ==
LOC: ER 19:50 → ERHOLD 06-12 01:06 → 2ND 06-12 01:49
PROVIDERS: ADMIT Internal Medicine; ATTEND Internal Medicine
DX: R51.9 Headache, unspecified (principal); R40.4 Transient alteration of awareness; I10 Essential (primary) hypertension; E78.5 Hyperlipidemia, unspecified; Z96.651 Presence of right artificial knee joint; I25.10 Atherosclerotic heart disease of native coronary artery without angina pectoris; Z20.822 Contact with and (suspected) exposure to COVID-19
CPT/HCPCS: 93306; 85025 ×2; 80048; 36415; 85610; 80061; 82565; 85730; 84443; 84484; 84439; 80053; 70450; 70496; 93880; 70553; 70544; 70549; 96375; 96374; 99285; U0003; Q9967; A9577; J1650; J7040; J2405; G0378 ×2; 81003; 81015

== ENCOUNTER 2021-07-14 23:47 | Emergency (ER) | payer OTHER ==
[2021-07-15] MEDS ORDERED: ONDANSETRON 4 MG/2 ML VIAL ONE (00:15)
[2021-07-15] MEDS ORDERED: NA CHLORIDE 0.9% 500 ML ONE (00:16)
[2021-07-15 00:34] LABS: Absolute Lymphocytes (CBC) 0.5 K/uL (0.7-4.9); Hematocrit 43.8 % (39.6-49.0); Lymphocytes % 4.8 % (15.3-44.8); MPV 7.4 fL (7.6-11.3); RBC Red Blood Cell Count 4.62 M/uL (4.33-5.43)
[2021-07-15 00:37] LABS: Albumin 4.2 g/dL (3.4-5.0); Bilirubin Total 0.9 mg/dL (0.2-1.0); Potassium 4.1 mmol/L (3.5-5.1); Protein, Total 7.4 g/dL (6.4-8.2)
[2021-07-15 01:12] LABS: Blood Morphology Comment NOT SEEN (NOT SEEN); Platelet Estimate ADEQ
--- NOTE | 2021-07-15 01:29 | EDPHYS ---
Physician Documentation [facility] Name: Amy Salcedo Jr Age: 76 yrs Sex: Male : 1945 Arrival Date: 07/14/2021 Time: 23:49 Bed 19 Private MD: ED Physician Albert Hidalgo HPI: 07/14 23:57 This 76 yrs old Male presents to ER via Unassigned with complaints of Vomiting/Diarrhea.rn 23:57 The patient presents to the emergency department with nausea, vomiting, diarrhea. rn Onset: The symptoms/episode began/occurred 5 hour(s) ago. Possible causes: unknown. The symptoms are aggravated by nothing. The symptoms are alleviated by nothing. Associated signs and symptoms: Pertinent positives: diarrhea, nausea, vomiting, Pertinent negatives: abdominal pain, fever, GI bleeding. Severity of symptoms: At their worst the symptoms were moderate in the emergency department the symptoms are unchanged. The patient has not experienced similar symptoms in the past. The patient has not recently seen a physician. Historical: - PMHx: 23:59 Hypercholesterolemia; Hypertensive disorder; st1 - PSHx: 23:59 stent; st1 - Immunization history:: Adult Immunizations up to date, Pneumococcal vaccine is up to date, Flu vaccine is up to date. - Social history:: Smoking status: Patient denies any tobacco usage or history of. Patient/guardian denies using alcohol, street drugs, IV drugs, tobacco products. - Family history:: not pertinent. - Hospitalizations: : No recent hospitalization is reported. ROS: 23:57 Constitutional: Negative for fever, chills, and weight loss, Eyes: Negative for injury, rn pain, redness, and discharge, Neck: Negative for injury, pain, and swelling, Cardiovascular: Negative for chest pain, palpitations, and edema, Respiratory: Negative for shortness of breath, cough, wheezing, and pleuritic chest pain, Abdomen/GI: + nausea/vomiting/diarrhea Back: Negative for injury and pain, : Negative for injury, bleeding, discharge, and swelling, MS/Extremity: Negative for injury and deformity, Skin: Negative for injury, rash, and discoloration, Neuro: Negative for headache, numbness, tingling, and seizure. Exam: 23:57 Constitutional: This is a well developed, well nourished patient who is awake, alert, rn and in no acute distress. Head/Face: Normocephalic, atraumatic. Eyes: Periorbital areas with no swelling, redness, or edema. ENT: dry MM Cardiovascular: Regular rate and rhythm. No pulse deficits. Respiratory: Speaking full sentences, unlabored. No increased work of breathing, no retractions or nasal flaring. Abdomen/GI: soft, non-tender, non-distended Skin: Warm, dry MS/ Extremity: Pulses equal, no cyanosis. Neuro: Awake and alert, GCS 15, oriented to person, place, time, and situation. Cranial nerves II-XII grossly intact. Motor strength 5/5 in all extremities. Sensory grossly intact. Cerebellar exam normal. Normal gait. Vital Signs: 23:58 Weight 74.84 kg; Height 5 ft. 6 in. (167.64 cm); Pain 0/10; st1 07/15 00:26 BP 145 / 89; Pulse 73; Resp 17; Temp 97.9(O); Pulse Ox 94% ; Pain 0/10; vc1 01:10 BP 131 / 80; Pulse 70; Resp 16; Pulse Ox 96% ; vc1 07/14 23:58 Body Mass Index 26.63 (74.84 kg, 167.64 cm) st1 MDM: 07/14 23:50 Patient medically screened. rn 07/15 01:27 Differential diagnosis: Nonspecific abd pain, gastritis, pancreatitis, appendicitis, rn diverticulitis, viral gastroenteritis, gastroenteritis. Data reviewed: vital signs, nurses notes, lab test result(s), radiologic studies, CT scan, and as a result, I will discharge patient. Counseling: I had a detailed discussion with the patient and/or guardian regarding: the historical points, exam findings, and any diagnostic results supporting the discharge/admit diagnosis, lab results, radiology results, the need for outpatient follow up, to return to the emergency department if symptoms worsen or persist or if there are any questions or concerns that arise at home. Response to treatment: the patient's symptoms have markedly improved after treatment, and as a result, I will discharge patient. Special discussion: I discussed with the patient/guardian in detail that at this point there is no indication for admission to the hospital. It is understood, however, that if the symptoms persist or worsen the patient needs to return immediately for re-evaluation. ED course: No acute findings on CT abdomen, most likely viral syndrome, stable vitals, will dc home with prn zofran. 07/14 23:52 Order name: CBC with Diff; Complete Time: 01: rn 07/14 23:52 Order name: CMP; Complete Time: 00:45 rn 07/14 23:52 Order name: Lipase; Complete Time: 00: rn 07/14 23:52 Order name: CT Abd/Pelvis - IV Contrast Only rn 07/14 23:52 Order name: COVID-19/FLU A+B (Document "Date of Onset" if Symptomatic); Complete Time: rn 07/15 00:39 Order name: Manual Differential; Complete Time: : EDMS 07/14 23:52 Order name: IV Saline Lock; Complete Time: 00: rn 07/14 23:52 Order name: Labs collected and sent; Complete Time: 00: rn 07/14 23:59 Order name: Cardiac monitoring; Complete Time: 00:25 rn Administered Medications: 00:24 Drug: NS 0.9% 500 ml Route: IV; Rate: bolus; Site: right antecubital; vc1 00:54 Follow up: IV Status: Completed infusion; IV Intake: 500ml vc1 00:25 Drug: Zofran (Ondansetron) 4 mg Route: IVP; Site: right antecubital; vc1 01:00 Follow up: Response: No adverse reaction; Marked relief of symptoms; Nausea is decreasedvc1 01:45 Drug: Phenergan (promethazine) 12.5 mg Route: IVP; Site: right antecubital; vc1 02:20 Follow up: Response: No adverse reaction; Marked relief of symptoms vc1 01:45 Drug: LoMOTIL (diphenoxylate-atropine) 2 tabs Route: PO; vc1 02:20 Follow up: Response: No adverse reaction; Marked relief of symptoms vc1 Disposition Summary: 07/15/21 01:28 Discharge Ordered Location: Home rn Problem: new rn Symptoms: have improved rn Condition: Stable rn Diagnosis - Vomiting, unspecified rn - Diarrhea, unspecified rn - SARS-associated coronavirus as the cause of diseases classified elsewhere rn Followup: rn - With: Private Physician - When: As needed - Reason: Recheck today's complaints, Re-evaluation by your physician Discharge Instructions: - Discharge Summary Sheet rn - Diarrhea, Adult rn - Nausea and Vomiting, Adult rn - COVID-19 rn - Viral Illness, Adult rn Forms: - Medication Reconciliation Form rn - Thank You Letter rn - Antibiotic customer experience intern - Prescription Opioid Use rn Prescriptions: - ondansetron 4 mg Oral tablet,disintegrating - place 1 tablet by TRANSLINGUAL route every 8-10 hours As needed; 15 tablet; rn Refills: 0, Product Selection Permitted Signatures: Dispatcher [employer] Alebrt Orellana MD MD rn Tingle, Shellie, RN RN st1 Cheryl Padilla, RN RN vc1
--- NOTE | 2021-07-15 01:29 | ER ---
Nurse's Notes [facility] Name: Amy Salcedo Jr Age: 76 yrs Sex: Male : 1945 Arrival Date: 07/14/2021 Time: 23:49 Bed 19 Private MD: Diagnosis: Vomiting, unspecified;Diarrhea, unspecified;SARS-associated coronavirus as the cause of diseases classified elsewhere Presentation: 07/14 23:58 Chief complaint: Patient states: nausea and vomiting since 2029 and diarrhea since st1 2299. Coronavirus screen: Vaccine status: Patient reports receiving the 2nd dose of the covid vaccine. moderna. Ebola Screen: No symptoms or risks identified at this time. 23:58 Method Of Arrival: Ambulatory st1 23:58 Initial Sepsis Screen: Does the patient meet any 2 criteria? No. Patient's initial st1 sepsis screen is negative. Does the patient have a suspected source of infection? No. Patient's initial sepsis screen is negative. Risk Assessment: Do you want to hurt yourself or someone else? Patient reports no desire to harm self or others. Onset of symptoms was July 14, 2021. 23:58 Acuity: HIEN 3 st1 Triage Assessment: 23:59 General: Appears in no apparent distress. uncomfortable, Behavior is calm, cooperative. st1 Pain: Denies pain. GI: Reports diarrhea, nausea, vomiting. Historical: - PMHx: 23:59 Hypercholesterolemia; Hypertensive disorder; st1 - PSHx: 23:59 stent; st1 - Immunization history:: Adult Immunizations up to date, Pneumococcal vaccine is up to date, Flu vaccine is up to date. - Social history:: Smoking status: Patient denies any tobacco usage or history of. Patient/guardian denies using alcohol, street drugs, IV drugs, tobacco products. - Family history:: not pertinent. - Hospitalizations: : No recent hospitalization is reported. Screenin/29 00:00 Abuse screen: Denies threats or abuse. Nutritional screening: No deficits noted. st1 Tuberculosis screening: No symptoms or risk factors identified. Fall Risk None identified. No fall in past 12 months (0 pts). No secondary diagnosis (0 pts). IV access (20 points). Ambulatory Aid- None/Bed Rest/Nurse Assist (0 pts). Gait- Normal/Bed Rest/Wheelchair (0 pts) Mental Status- Oriented to own ability (0 pts). Total Wheat Fall Scale indicates No Risk (0-24 pts). Assessment: 00:01 Reassessment: please see triage assessment. st1 00:28 General: Appears comfortable, ill, Behavior is calm, cooperative, appropriate for age. vc1 Neuro: Level of Consciousness is awake, alert, obeys commands, Oriented to person, place, time, situation, Appropriate for age. GI: Abdomen is round non-distended, Reports diarrhea, nausea, vomiting, Patient currently denies abdominal pain. 01:10 Reassessment: Patient and/or family updated on plan of care and expected duration. Pain vc1 level reassessed. Patient is alert, oriented x 3, equal unlabored respirations, skin warm/dry/pink. Patient states feeling better. Patient states symptoms have improved. 01:43 Reassessment: Pt. stated he is starting to feel nauseous again. Will administer more vc1 antiemetics and watch before discharging. 02:20 Reassessment: Patient and/or family updated on plan of care and expected duration. Pain vc1 level reassessed. Patient is alert, oriented x 3, equal unlabored respirations, skin warm/dry/pink. Patient denies pain at this time. Patient states feeling better. Patient states symptoms have improved. Vital Signs: 07/14 23:58 Weight 74.84 kg; Height 5 ft. 6 in. (167.64 cm); Pain 0/10; st1 07/15 00:26 BP 145 / 89; Pulse 73; Resp 17; Temp 97.9(O); Pulse Ox 94% ; Pain 0/10; vc1 01:10 BP 131 / 80; Pulse 70; Resp 16; Pulse Ox 96% ; vc1 07/14 23:58 Body Mass Index 26.63 (74.84 kg, 167.64 cm) st1 ED Course: 07/14 23:49 Patient arrived in ED. ag3 23:50 Albert Hidalgo MD is Attending Physician. rn 23:57 Cheryl Padilla, TUSHAR is Primary Nurse. vc1 23:59 Triage completed. st1 07/15 00:00 Arm band placed on right wrist. st1 00:00 Patient has correct armband on for positive identification. Bed in low position. Call st1 light in reach. Side rails up X 1. Pulse ox on. NIBP on. 00:03 Inserted saline lock: 20 gauge in right forearm, using aseptic technique. vc1 00:25 COVID-19/FLU A+B (Document "Date of Onset" if Symptomatic) Sent. vc1 00:25 CBC with Diff Sent. vc1 00:25 CMP Sent. vc1 00:25 Lipase Sent. vc1 01:06 CT Abd/Pelvis - IV Contrast Only In Process Unspecified. EDMS 02:21 No provider procedures requiring assistance completed. IV discontinued, intact, vc1 bleeding controlled, No redness/swelling at site. Pressure dressing applied. Administered Medications: 00:24 Drug: NS 0.9% 500 ml Route: IV; Rate: bolus; Site: right antecubital; vc1 00:54 Follow up: IV Status: Completed infusion; IV Intake: 500ml vc1 00:25 Drug: Zofran (Ondansetron) 4 mg Route: IVP; Site: right antecubital; vc1 01:00 Follow up: Response: No adverse reaction; Marked relief of symptoms; Nausea is decreasedvc1 01:45 Drug: Phenergan (promethazine) 12.5 mg Route: IVP; Site: right antecubital; vc1 02:20 Follow up: Response: No adverse reaction; Marked relief of symptoms vc1 01:45 Drug: LoMOTIL (diphenoxylate-atropine) 2 tabs Route: PO; vc1 02:20 Follow up: Response: No adverse reaction; Marked relief of symptoms vc1 Intake: 00:54 IV: 500ml; Total: 500ml. vc1 Outcome: 01:28 Discharge ordered by . rn 02:21 Discharged to home via wheelchair, with significant other. vc1 02:21 Condition: good 02:21 Condition: good 02:21 Discharge instructions given to patient, Instructed on discharge instructions, follow up and referral plans. medication usage, Demonstrated understanding of instructions, follow-up care, medications, Prescriptions given X 1. 02:23 Patient left the ED. vc1 Signatures: Dispatcher [employer] EDWI Albert Hidalgo MD MD rn Gomez, Alice ag3 Erica Talbert RN RN st1 Cheryl Padilla RN RN vc1
[2021-07-15] MEDS ORDERED: DIPHENOX/ATROP SULF 1 TAB PO ONE (01:40)
[2021-07-15] MEDS ORDERED: PROMETHAZINE INJ 25 MG/ML AMP ONE (01:40)
[2021-07-15 01:41] LABS: SARS-COV-2 RT PCR POSITIVE (NEGATIVE)
[2021-07-15 02:58] VITALS: TEMP 97.9
[2021-07-15 02:59] VITALS: BP 131/80; O2SAT 96
--- NOTE | 2021-07-15 17:56 | RAD REPORT ---
EXAM DESCRIPTION: CT - Abdomen Pelvis W Contrast - 07/15/2021 6:45 am CLINICAL HISTORY: Nausea/vomiting/diarrhea COMPARISON: None. TECHNIQUE: CT ABDOMEN PELVIS WITH IV CONTRAST on 07/14/2021 11:52 PM CDT This exam was performed according to our departmental dose-optimization program, which includes autom ated exposure control, adjustment of the mA and/or kV according to patient size and/or use of iterati ve reconstruction technique. FINDINGS: Lower lungs are clear. Abdomen: There are several scattered cysts in the liver measuring less than 1 cm. There is no biliary dilatation. Gallbladder is normal in appearance. Pancreas is unremarkable. There are multiple calcif ied renal mass in the spleen. Abdominal aorta is normal in course and caliber without aneurysm. There is no free air. There is no r etroperitoneal adenopathy. Pelvis: There is no bowel obstruction. Urinary bladder is unremarkable. There is no free fluid. Appen sonu is normal. Skeleton: There are no acute osseous findings. No suspicious bony lesions. IMPRESSION: No definite acute process. Electronically signed by: Beau Anderson MD 07/15/2021 1:19 AM CDT Due to temporary technical issues with the PACS/Fluency reporting system, reports are being signed by the in house radiologists without review as a courtesy to insure prompt reporting. The interpreting radiologist is fully responsible for the content of the report.
== END 2021-07-15 02:23 | disposition home or self-care (01) ==
LOC: ER 23:47
DX: U07.1 COVID-19 (principal); R19.7 Diarrhea, unspecified; E78.00 Pure hypercholesterolemia, unspecified; I10 Essential (primary) hypertension
CPT/HCPCS: 85025; 36415; 83690; 80053; 0240U; 74177; Q9967; J2550; J7040; J2405; 96374; 96375; 99284